=== PATIENT | male | born 1980 | race Two or more races ===

== ENCOUNTER 2019-10-03 19:19 | Emergency (ER) | payer MEDICAID, OTHER ==
[~2019-10-03] VITALS: Ht 177.8 cm; Wt 74.0 kg
--- NOTE | 2019-10-03 20:44 | NUR ---
pt to room from lobby
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
--- NOTE | 2019-10-03 21:52 | NUR ---
PT RESTING ON GURNEY WITH EYES CLOSED, RESPIRATIONS EVEN AND NONLABORED. MONITORING IN PLACE. CALL LIGHT WITHIN REACH. ALL SAFETY MEASURES IN PLACE.
--- NOTE | 2019-10-03 22:49 | NUR ---
MONITORING IN PLACE. PT RESTING ON GURNEY WITH EYES CLOSED, ALL SAFETY MEASURES IN PLACE.
--- NOTE | 2019-10-03 23:05 | NUR ---
PT TO IMAGING AT THIS TIME.
[2019-10-03] MEDS ORDERED: MORPHINE SULFATE 4 MG/ML, 1ML IVPush PRN (23:30)
[2019-10-03] MEDS ORDERED: ONDANSETRON 2MG/ML, 2ML IVPush ONE (23:30)
[2019-10-03] MEDS ORDERED: MORPHINE SULFATE 4 MG/ML, 1ML ONE (23:43)
[2019-10-03] MEDS ORDERED: ONDANSETRON 2MG/ML, 2ML ONE (23:43)
--- NOTE | 2019-10-04 00:49 | NUR ---
REPORT OF PT FROM ZECHARIAH GODFREY AND ASSUMING CARE OF PT AT THIS TIME.
[2019-10-04] MEDS ORDERED: KETOROLAC 30 MG/1 ML IVPush ONE (01:00)
[2019-10-04] MEDS ORDERED: KETOROLAC 30 MG/1 ML ONE (01:01)
--- NOTE | 2019-10-04 01:08 | NUR ---
PT MEDICATED PER [facility] FOR PAIN.
--- NOTE | 2019-10-04 01:38 | NUR ---
pt d/c with d/c summary and scripts. all questions answered. pt piv d/c with tip intact. pt ambulates to regsitration desk with steady gait for d/c home. pt denies any other needs pertaining to this visit.
[2019-10-04 01:40] VITALS: BP 107/70
== END 2019-10-04 02:13 | disposition home or self-care (01) ==
LOC: ED 10-04 01:33
DX: S39.012A Strain of muscle, fascia and tendon of lower back, initial encounter (principal); X58.XXXA Exposure to other specified factors, initial encounter; Y93.89 Activity, other specified; Y92.89 Other specified places as the place of occurrence of the external cause; Y99.8 Other external cause status
CPT/HCPCS: 72148; 96374; 96375; 99285; J1885; J2270; J2405; 99284